=== PATIENT | male | born 1960 | race Native Hawaiian/Other Pacific Islander ===

== ENCOUNTER 2022-09-18 15:11 | Emergency (ER) | payer OTHER ==
[~2022-09-18] VITALS: Ht 165.1 cm; Wt 112.9 kg
[2022-09-18 15:16] VITALS: TEMP 98.5
[2022-09-18 15:55] LABS: PLATELET COUNT 242 K/uL (142-355)
[2022-09-18] MEDS ORDERED: TRAZODONE HYDR150 MG PO (16:05)
[2022-09-18] MEDS ORDERED: VRAYLAR4.5 MG PO (16:05)
[2022-09-18] MEDS ORDERED: DULO60CA2 PO (16:06)
[2022-09-18] MEDS ORDERED: LAMICTAL100 MG PO (16:06)
[2022-09-18] MEDS ORDERED: TRULICITY1.5 MG/0.5 SC (16:08)
[2022-09-18] MEDS ORDERED: LISI20TA11 PO (16:08)
[2022-09-18 16:09] LABS: POTASSIUM 4.1 mmol/L (3.6-5.2)
[2022-09-18] MEDS ORDERED: TAMSULOSIN0.4 MG PO (16:09)
[2022-09-18] MEDS ORDERED: FENOFIBRATE160 MG PO (16:10)
[2022-09-18] MEDS ORDERED: METOPROLOL25 M1 PO (16:10)
[2022-09-18] MEDS ORDERED: MOBIC15 MG PO (16:11)
[2022-09-18] MEDS ORDERED: SYNJARDY PO (16:11)
[2022-09-18 16:13] LABS: PARTIAL THROMBOPLASTIN TIME 25.7 SECONDS (24.5-33.6)
[2022-09-18] MEDS ORDERED: LIPITOR20 MG PO (16:14)
[2022-09-18 17:07] VITALS: BP 121/877
== END 2022-09-18 17:07 | disposition home or self-care (01) ==
LOC: ED 15:11
PROVIDERS: Emergency Medicine
DX: K52.89 Other specified noninfective gastroenteritis and colitis (principal); E11.9 Type 2 diabetes mellitus without complications; Z79.85 Long-term (current) use of injectable non-insulin antidiabetic drugs; I10 Essential (primary) hypertension
CPT/HCPCS: 80053; 82150; 83690; 83880; 84484; 85027; 85610; 85730; 93005; 96360; 99283; 99284

== ENCOUNTER 2022-10-13 20:19 | Emergency (ER) | payer OTHER ==
[~2022-10-13] VITALS: Ht 165.1 cm; Wt 115.7 kg
[~2022-10-13 20:19] MED LIST: DULO60CA2 PO; FENOFIBRATE160 MG PO; LAMICTAL100 MG PO; LIPITOR20 MG PO; LISI20TA11 PO; METOPROLOL25 M1 PO; MOBIC15 MG PO; SYNJARDY PO; TAMSULOSIN0.4 MG PO; TRAZODONE HYDR150 MG PO; TRULICITY1.5 MG/0.5 SC; VRAYLAR4.5 MG PO
[2022-10-13 20:23] VITALS: TEMP 98.9
[2022-10-13 23:00] VITALS: BP 122/68
== END 2022-10-13 23:00 | disposition home or self-care (01) ==
LOC: ED 20:19
DX: D17.0 Benign lipomatous neoplasm of skin and subcutaneous tissue of head, face and neck (principal)
CPT/HCPCS: 96372; 99283

== ENCOUNTER 2022-11-14 16:34 | Emergency (ER) | payer OTHER ==
[~2022-11-14] VITALS: Ht 165.1 cm; Wt 116.1 kg
[2022-11-14 18:55] VITALS: BP 126/77; TEMP 97.2
== END 2022-11-14 18:55 | disposition home or self-care (01) ==
LOC: ED 16:34
DX: M17.0 Bilateral primary osteoarthritis of knee (principal)
CPT/HCPCS: 96372; 99282; J1885

== ENCOUNTER 2022-12-15 20:28 | Emergency (ER) | payer OTHER ==
[~2022-12-15] VITALS: Ht 165.1 cm; Wt 121.1 kg
[2022-12-15 20:35] VITALS: BP 136/80; TEMP 98.3
== END 2022-12-15 21:12 | disposition home or self-care (01) ==
LOC: ED 20:28
DX: L73.9 Follicular disorder, unspecified (principal)
CPT/HCPCS: 99282

== ENCOUNTER 2022-12-18 22:47 | Emergency (ER) | payer OTHER ==
[~2022-12-18] VITALS: Ht 165.1 cm; Wt 102.1 kg
[2022-12-18 23:00] VITALS: TEMP 99.1
[2022-12-18 23:57] LABS: PLATELET COUNT 212 K/uL (142-355)
[2022-12-19 00:11] LABS: POTASSIUM 3.9 mmol/L (3.6-5.2)
[2022-12-19 00:37] VITALS: BP 150/84
== END 2022-12-19 00:37 | disposition home or self-care (01) ==
LOC: ED 22:47
PROVIDERS: Emergency Medicine
DX: R60.0 Localized edema (principal)
CPT/HCPCS: 36415; 80053; 83880; 84484; 85027; 93005; 96372; 99283; J1940

== ENCOUNTER 2022-12-25 21:18 | Emergency (ER) | payer OTHER ==
[~2022-12-25] VITALS: Ht 165.1 cm; Wt 117.0 kg
[2022-12-25 21:20] VITALS: TEMP 98.1
[2022-12-25 22:50] VITALS: BP 145/76
== END 2022-12-25 22:50 | disposition home or self-care (01) ==
LOC: ED 21:18
DX: M25.562 Pain in left knee (principal); M25.561 Pain in right knee
CPT/HCPCS: 96372; 99282; J2270; J2405

== ENCOUNTER 2023-01-13 23:22 | Emergency (ER) | payer OTHER ==
[~2023-01-13] VITALS: Ht 165.1 cm; Wt 116.1 kg
[2023-01-13 23:33] VITALS: BP 144/91; TEMP 98.1
== END 2023-01-14 00:20 | disposition home or self-care (01) ==
LOC: ED 23:22
DX: M25.561 Pain in right knee (principal); I10 Essential (primary) hypertension
CPT/HCPCS: 96372; 99282; J1885

== ENCOUNTER 2023-01-20 21:11 | Emergency (ER) | payer OTHER ==
[~2023-01-20] VITALS: Ht 165.1 cm; Wt 115.7 kg
[2023-01-20 21:20] VITALS: BP 137/82; TEMP 98.3
== END 2023-01-20 22:00 | disposition left against medical advice (07) ==
LOC: ED 21:11
DX: Z53.21 Procedure and treatment not carried out due to patient leaving prior to being seen by health care provider (principal)
CPT/HCPCS: 99281

== ENCOUNTER 2023-03-19 18:53 | Emergency (ER) | payer OTHER ==
[~2023-03-19] VITALS: Ht 165.1 cm; Wt 113.4 kg
[2023-03-19 19:54] LABS: PLATELET COUNT 268 K/uL (142-355)
[2023-03-19 20:00] VITALS: TEMP 97.6
[2023-03-19 20:05] LABS: POTASSIUM 4.1 mmol/L (3.6-5.2)
[2023-03-20 00:35] VITALS: BP 144/78
== END 2023-03-20 00:35 | disposition home or self-care (01) ==
LOC: ED 18:53
PROVIDERS: Family Medicine
DX: K21.9 Gastro-esophageal reflux disease without esophagitis (principal); R10.9 Unspecified abdominal pain
CPT/HCPCS: 80053; 81002; 83690; 85027; 96361; 96365; 96375; 99284; J2405; J2550; Q9963

== ENCOUNTER 2023-09-07 17:01 | Emergency (ER) | payer OTHER ==
[~2023-09-07] VITALS: Ht 165.1 cm; Wt 116.1 kg
[2023-09-07 17:04] VITALS: TEMP 97.7
[2023-09-07] MEDS ORDERED: Ondansetron HCl 4 MG INJ INJ ONE (17:13)
[2023-09-07 17:41] LABS: PLATELET COUNT 266 K/uL (142-355)
[2023-09-07 19:20] VITALS: BP 112/70
== END 2023-09-07 19:20 | disposition home or self-care (01) ==
LOC: ED 17:01
PROVIDERS: Internal Medicine Endocrinology, Diabetes & Metabolism
DX: R11.2 Nausea with vomiting, unspecified (principal); R19.7 Diarrhea, unspecified; R10.9 Unspecified abdominal pain; A08.39 Other viral enteritis
CPT/HCPCS: 80053; 81002; 83690; 84484; 85027; 93005; 96374; 99284; J2405; Q9963